=== PATIENT | male | born 1965 | race Two or more races ===

== ENCOUNTER 2020-07-25 07:15 | Day surgery (SDC) | payer OTHER ==
--- NOTE | 2020-07-24 17:30 | Pre-Procedure Note/Attestation ---
Pre-Procedure Note/Attestation Complete Prior to Procedure Planned Procedure: bilateral Procedure Narrative: 1. Septoplasty 2. Right submucous resection inferior turbinate 3. Left Submucous resection inferior turbinate 4. Excise right isaias bullosa 5. Excise left isaias bullosa. Indications for Procedure Pre-Operative Diagnosis: 1. Nasal septal deviation 2. 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 Right hypertrophied isaias bullosa Attestation I attest that I discussed the nature of the procedure; its benefits; risks and complications; and alternatives (and the risks and benefits of such alternatives), prior to the procedure, with the patient (or the patient's legal customer operations representative). I attest that, if there was a reasonable possibility of needing a blood transfusion, the patient (or the patient's legal customer operations representative) was given the [facility] standardized written summary, pursuant to the Grey Amadeo Blood Safety Act ([place] Health and Safety Code # 1645, as amended). I attest that I re-evaluated the patient just prior to the surgery and that there has been no change in the patient's H&P which was completed by Dr. Smith-on staff at [place]. I have reviewed and concur. Del Guerrero MD Jul 24, 2020 17:29
--- NOTE | 2020-07-24 17:31 | Brief Operative Note ---
Immediate Post Operative Note Operative Note Pre-op Diagnosis: 1. Nasal septal deviation 2. 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 Right hypertrophied isaias bullosa Post-op Diagnosis: 1. Septoplasty 2. Right submucous resection inferior turbinate 3. Left Submucous resection inferior turbinate 4. Excise right isaias bullosa 5. Excise left isaias bullosa. Post-op Diagnosis: same as pre-op Surgeon: Del Guerrero MD Expanded Function Dental Assistant: none Additional Surgeons: none Anesthesia: general Specimen: yes - Left middle turbinte-possible polypoid Complications: none Condition: stable Fluids: [id number] Estimated Blood Loss: volume - 50 cc Drains: none Packing: Sino-nasal gel Tourniquet time: 0 Implant(s) used?: No Del Guerrero MD Jul 24, 2020 17:31
[2020-07-25] VITALS (8 sets, daily range): BP systolic 118–141; BP diastolic 62–87
[~2020-07-25] VITALS: Ht 177.8 cm; Wt 93.0 kg
--- NOTE | 2020-07-25 07:10 | Anethesia Preoperative Eval ---
Anesthesia Pre-op PMH/ROS General Date of Evaluation: Jul 25, 2020 Time of Evaluation: 08:16 Anesthesiologist: Bekah ASA Score: ASA 3 Mallampati Score Class I : Soft palate, uvula, fauces, pillars visible Class II: Soft palate, uvula, fauces visible Class III: Soft palate, base of uvula visible Class IV: Only hard plate visible Mallampati Classification: Class II Surgeon: Cesar Diagnosis: Covid + Surgical Procedure: Septoplasty Family History: no anesthesia problems Allergies: Coded Allergies: No Known Allergies (Unverified , 07/25/20) Medications: see eMAR Patient NPO?: Yes Past Medical History Cardiovascular: Reports: HTN Pulmonary: Reports: PAULA, other - Covid + Gastrointestinal/Genitourinary: Reports: other - Testicular CA Hematology/Immune: Reports: DVT Other: obesity - BMI 31 PSxH Narrative: L & R Shoulder SX Anesthesia Pre-op Phys. Exam Physician Exam Constitutional: NAD Neurologic: CN 2-12 intact Cardiovascular: RRR Respiratory: CTA Airway Exam Mallampati Score: Class II MO: limited ROM: limited Teeth: missing, intact Anesthesia Pre-op A/P Risk Assessment & Plan Assessment: ASA 3 Plan: GA Status Change Before Surgery: No Pre-Antibiotics Dru Grams Ancef IV Given Within 1 Hr of Incision: Yes Time Given: 08:31 Tobi Godfrey MD Jul 25, 2020 07:10
--- NOTE | 2020-07-25 07:11 | Immediate Post-Op Evaluation ---
Immediate Post-Op Evalulation Immediate Post-Op Evalulation Procedure: Septoplasty Date of Evaluation: Jul 25, 2020 Time of Evaluation: 09:17 IV Fluids: 1000 LR Blood Products: 0 Estimated Blood Loss: 50 Urinary Output: 0 Blood Pressure Systolic: 119 Blood Pressure Diastolic: 62 Pulse Rate: 58 Respiratory Rate: 16 O2 Sat by Pulse Oximetry: 100 Temperature (Fahrenheit): 98 Pain Score (1-10): 2 Nausea: No Vomiting: No Complications 0 Patient Status: awake, reacts, patent, none Hydration Status: adequate Dru Grams Ancef IV Given Within 1 Hr of Incision: Yes Time Given: 08:31 Tobi Godfrey MD Jul 25, 2020 07:11
--- NOTE | 2020-07-25 07:12 | 48 Hour Post Anesthesia Eval ---
Post Anesthesia Evaluation Procedure: Septoplasty Date of Evaluation: Jul 25, 2020 Time of Evaluation: 11:36 Blood Pressure Systolic: 141 0: 86 Pulse Rate: 62 Respiratory Rate: 18 Temperature (Fahrenheit): 98 O2 Sat by Pulse Oximetry: 100 Airway: patent Nausea: No Vomiting: No Pain Intensity: 2 Hydration Status: adequate Cardiopulmonary Status: Stable Mental Status/LOC: patient returned to baseline Follow-up Care/Observations: 0 Post-Anesthesia Complications: 0 Follow-up care needed: N/A Tobi Godfrey MD Jul 25, 2020 07:12
[~2020-07-25 07:15] MED LIST: AMLODIPINE BESYL5 MG ORAL; AMOXICILLIN500 MG ORAL; Acetaminophen (Non formulary) 100 ML IV ONE; Atropine Sulfate 0.4mg/ml inj IVP PRN; DiphenhydrAMINE 50mg/ml Inj IVP PRN; ENDOCET 5-3251 EACH ORAL; FISH OIL CAP1000 MG ORAL; HYDROcodone/Acetamin 5/325 tab ORAL PRN; HYDROcodone/Acetamin 7.5/325 tab ORAL PRN; Hydromorphone 0.5mg/0.5ml inj IVP PRN; Ketorolac 30mg Inj IV PRN; LORazepam Inj 2mg/ml 1ml IV PRN; LOSARTAN POTASS50 MG ORAL; LR 1000ml 1,000 ML IVLG SCH; Labetalol 5mg/ml 20ml vial IV PRN; MULTIVITAMINS1 EAC2 ORAL; Meperidine 25mg/1ml Inj (FOR RIGORS ONLY) IV PRN; Metoclopramide 10mg/2ml Inj IVP PRN; Midazolam 2mg/2ml Inj IVP PRN; VITAMIN C500 M1 ORAL; XARELTO10 MG ORAL; ZINC30 MG ORAL; ceFAZolin sod 1 GM in D5W 55 ML IV ONE; fentaNYL 100 mcg/2 mL IV PRN; oxyCODONE HCL/Acetaminophen 5/325mg ORAL PRN; vitamin D PO
[2020-07-25] MEDS ORDERED: Lidocaine 1% MPF 10mg/ml 5ml ONE (07:21)
[2020-07-25] MEDS ORDERED: Sodium Chloride 10ml vial INJ ONE (07:21)
[2020-07-25] MEDS ORDERED: fentaNYL 100 mcg/2 mL IV ONE (07:22)
[2020-07-25] MEDS ORDERED: Lidocaine 1% Plain 30 ml INJ ONE ×2 (07:22→07:26)
[2020-07-25] MEDS ORDERED: EPINEPHrine 1mg/1ml Amp ONE (07:25)
[2020-07-25] MEDS ORDERED: Cocaine HCl 4% 4ml vial TOPIC ONE (07:26)
[2020-07-25] MEDS ORDERED: Bupivacaine w/Epi 0.25% 50ml vial INJ ONE (07:26)
[2020-07-25] MEDS ORDERED: Lidocaine 2% 20mg/ml/Epi 0.005mg/ml 20ml vial ONE (07:26)
[2020-07-25] MEDS ORDERED: Bupivacaine 0.5% Inj 30 ml vial INJ ONE (07:26)
[2020-07-25] MEDS ORDERED: Sterile Water Irrig 1000ml IRRIG ONE (08:00)
[2020-07-25] MEDS ORDERED: LR 1000ml ONE (08:00)
[2020-07-25] MEDS ORDERED: propofoL 1,000mg/100ml IV ONE (08:00)
[2020-07-25] MEDS ORDERED: NS Irrig 1000ml ONE (08:00)
[2020-07-25] MEDS ORDERED: HYDROmorphone 1mg/ml Carpuject SUBQ PRN (09:15)
[2020-07-25] MEDS ORDERED: HYDROcodone/Acetamin 5/325 tab ORAL PRN (09:15)
[2020-07-25] MEDS ORDERED: Metoclopramide 10mg/2ml Inj IVP PRN (09:15)
--- NOTE | 2020-07-25 09:18 | Discharge Instructions ---
Discharge Instructions Discharge Instructions Follow up with: next week Dr. Guerrero's office-pt. has appt. already Diet: regular Resume Normal Activity?: No Activity: light activity Pneumonia Vaccine: pt refused vaccine Influenza Vaccine (Mar to Aug): pt refused vaccine Follow Up Orders ice to face x 48 hours. Pt. has printed post op orders which were reviewed at his pre op visit 2 weeks ago. He also has his post op meds already-[place] and Amox. Return to Work/School on: Aug 08, 2020 For Congestive Heart Failure Reminder Report to your physician any weight gain of 5 pounds or more in one week. Del Guerrero MD Jul 25, 2020 09:18
--- NOTE | 2020-07-25 09:59 | Operative Note - Dictated ---
DATE OF OPERATION: 07/25/2020 SURGEON: Del Guerrero MD SENIOR LEAD DEVELOPER: None. ANESTHESIOLOGIST: Tobi Godfrey MD. ANESTHESIA: LMA general anesthesia as well as 8 mL 1% lidocaine, 1000 epinephrine and Marcaine 0.5% without epinephrine. Also 4 mL of 4% topical cocaine placed on four nasal pledgets accounted for at the end of the case. PREOPERATIVE DIAGNOSES: Septal deviation to the left, hypertrophied right and left inferior turbinates, and hypertrophied isaias bullosa bilaterally little obstructive. POSTOPERATIVE DIAGNOSES: Septal deviation to the left, hypertrophied right and left inferior turbinates, and hypertrophied isaias bullosa bilaterally little obstructive. FINDINGS: Septal deviation to the left, hypertrophied right and left inferior turbinates, and hypertrophied isaias bullosa bilaterally little obstructive. PROCEDURE: 1. Septoplasty. 2. Submucous resection right inferior turbinate. 3. Submucous resection left inferior turbinate. 4. Excision right isaias bullosa. 5. Excision left isaias bullosa. TECHNIQUE: Patient was prepped and draped in usual manner. Time-out was performed and all agreed as to the procedures and equipment indicated or required. I then injected the aforementioned lidocaine, Marcaine, and epinephrine mixture. Also 4 mL of 4% topical cocaine were placed on four nasal pledgets, two on either nostril accounted for at the end of the case. I addressed the right inferior turbinate first, small incision. Passed radiofrequency wand after coating with saline gel at a setting of 6 x 10 seconds twice. I then outfractured with a Boies elevator. Left inferior turbinate, small stab incision anterior inferior position. Radiofrequency needle placed after coating with saline gel. Two passes at a setting of 6, 10 seconds each. Outfractured with a Boies elevator. I then identified the right middle turbinate. Medialized it with a dental elevator and cut its attachment with a small angled scissors. This was then removed with combination of a straight Romelia and James. Nasal pledgets were then pushed up to the anterior vault of the nose on the right side. I then addressed the left side isaias bullosa middle turbinate. Again, identified the root utilizing the Comstock elevator to move the middle turbinate. I then cut this with a small angled scissors and removed with combination of a straight Romelia and James. I then placed the other 2 nasal pledgets up against this area to control minimal bleeding. I made an incision on the left side of the septum with a 15 blade in Nader position. I elevated subperiosteally and subperichondrially with a dental elevator. I then used angled scissors to cut the anterior leaving a centimeter anterior and inferiorly and removing this with a straight Romelia. I then used a small osteotome to remove the vomer on the left side. This was taken out with a straight Romelia. I then closed this incision with a 4-0 plain suture x2. There was no perforation of the mucous membrane on the right side of Kiesselbach plexus. I then suctioned the nose dry and placed 1 syringe full of sinonasal gel 50 50 between the two nares primarily over the middle turbinate attachment area. Mustache dressing was placed. ESTIMATED BLOOD LOSS: 50 mL. COMPLICATIONS: None. DRAINS: None. CONDITION OF PATIENT: Patient awake, alert, and stable in the operating room after extubation. Del Guerrero M.D. DR: CHAS JOB#: [id number] CC:
== END 2020-07-25 10:10 | disposition home or self-care (01) ==
LOC: SUR 07:15
DX: J34.2 Deviated nasal septum (principal); U07.1 COVID-19; J34.3 Hypertrophy of nasal turbinates; J34.89 Other specified disorders of nose and nasal sinuses; I10 Essential (primary) hypertension; G47.33 Obstructive sleep apnea (adult) (pediatric); Z86.718 Personal history of other venous thrombosis and embolism; E66.9 Obesity, unspecified; Z85.47 Personal history of malignant neoplasm of testis
CPT/HCPCS: 30140; 30520; 30999; C9046; J0131; J0690; J1100; J2001; J2250; J2405; J2704; J3010; J3490; J7120; U0004